=== PATIENT | female | born 1975 | race Caucasian/White ===

== ENCOUNTER 2018-01-13 00:34 | Inpatient (IN) ==
[2018-01-13 01:02] LABS: Bilirubin,Urine Negative (Negative); Blood,Urine Moderate (Negative); Clarity,Urine Cloudy (Clear); Color,Urine Yellow (Yellow); Glucose,Urine (UA) Normal (Normal); Ketones,Urine 40 mg/dL (Negative); Leukocyte Esterase,Urine Large (Negative); Nitrite,Urine Positive (Negative); Protein,Urine 100 mg/dL (Neg-Trace); Specific Gravity,Urine 1.018 (1.010-1.025); Urobilinogen,Urine Normal (Normal)
[2018-01-13 01:07] LABS: Bacteria,Urine Many per hpf (None-Few); Hyaline Casts,Urine Moderate per lpf (None-Few); Squamous Epithelial Cell,Urine Many per lpf (None-Few); WBC,Urine TNTC per hpf (0-3)
--- NOTE | 2018-01-13 01:30 | Emergency Department Note ---
Disposition Clinical Impression: Pyelonephritis, Right flank pain UTI (urinary tract infection) Qualifiers: Urinary tract infection type: acute cystitis Hematuria presence: with hematuria Qualified Code(s): N30.01 - Acute cystitis with hematuria Disposition: Admitted As Inpatient Condition: Fair Referrals: Yin Mejia MD [Primary Care Provider] - Forms: ED Satisfaction Letter Time of Disposition: 04:02 General Adult HPI - General Chief complaint: ED Back Pain/Injury Stated complaint: Bilat Flank Pain Time Seen by Provider: 01/13/18 01:30 Source: patient, family Mode of arrival: ambulatory Limitations: no limitations Nursing Notes Reviewed: Yes Vital Signs Reviewed: Yes - History of Present Illness HPI Narrative: Patient is a 42-year-old female with past medical history of Sjogren's, lupus, chronic UTIs. She presents today due to dysuria, hematuria, bilateral flank pain, right upper quadrant pain. She states that this has been going on for about a week, she has not had any nausea or vomiting but does state that she has had subjective fevers at home. She has also had a few episodes of loose runny stools but denies any blood in stool. No other chest pain, shortness breath, cough. Denies any vaginal bleeding or discharge. She admits to multiple episodes of UTIs and pyelonephritis in the past that have required admission Pain Scale: 10 - Related Data Allergies Allergy/AdvReac Type Severity Reaction Status Date / Time methotrexate Allergy Hives Verified 01/13/18 00:37 Penicillins Allergy Hives Verified 01/13/18 00:37 Sulfa (Sulfonamide Allergy Hives Verified 01/13/18 00:37 Antibiotics) All systems ED: reviewed and negative except as stated. Constitutional: Reports: fever Cardiovascular: Denies: chest pain Respiratory: Denies: dyspnea Gastrointestinal: Reports: abdominal pain. Denies: nausea, vomiting, diarrhea Genitourinary: Reports: dysuria, hematuria Neurological: Denies: headache, weakness, numbness, paresthesias Past Medical History - Past Medical History Attestation: Yes The following information was validated with the patient. 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 history: Reports: uterine fibroids - Social History Smoking Status: Current every day smoker Smokeless Tobacco Status: No Alcohol use: Reports: occasionally Drug use: Reports: marijuana Physical Exam - General Limitations: no limitations General appearance: alert, in no apparent distress - Head Head exam: atraumatic, normocephalic, normal inspection - Eye Eye exam: Present: normal appearance, PERRL, EOMI - ENT ENT exam: normal exam, normal oropharynx, mucous membranes moist - Neck Neck exam: Present: normal inspection, full ROM, trachea midline - Chest Chest inspection: Present: normal inspection, symmetric chest wall rise - Respiratory Respiratory exam: Present: normal lung sounds bilaterally - Cardiovascular Cardiovascular exam: Present: normal rhythm, tachycardia, normal heart sounds - Abdominal Exam Abdominal exam: Present: soft, tenderness (Mild to moderate right upper quadrant tenderness, right CVA tenderness). Absent: distention, guarding, rebound, rigidity, Landa's sign, Rovsing's sign, tenderness at McBurney's Point - Extremities Exam Extremities exam: Present: normal inspection, full ROM. Absent: tenderness, pedal edema - Neurological Exam Neurological exam: Present: alert, oriented X3 - Psychiatric Psychiatric exam: Present: normal affect, normal mood - Skin Skin exam: Present: warm, dry, intact, normal color Course Course Narrative: Patient was tachycardic on presentation. Patient was given fluids. Patient appeared very palpable on exam, was lying on her side, had right CVA tenderness , mild right upper quadrant tenderness but negative Landa's. Bedside ultrasound was negative for cholecystitis. CT abdomen and pelvis shows right perinephric stranding. Urinalysis was positive for UTI. Elevated white blood cell count. Patient does meet sepsis criteria. She had sepsis protocol workup. Patient was given Rocephin 2 g. She will be admitted to the hospital for further care. Patient was given fentanyl and Zofran for pain and nausea control during her stay in the ER. Vital Signs Temperature 97.6 F 01/13/18 00:37 Pulse Rate 110 01/13/18 00:37 Respiratory Rate 18 01/13/18 00:37 Blood Pressure 127/84 01/13/18 00:37 O2 Sat by Pulse Oximetry 98 01/13/18 00:37 Temperature 97.6 F 01/13/18 00:37 Pulse Rate 110 01/13/18 00:37 Respiratory Rate 18 01/13/18 00:37 Blood Pressure 127/84 01/13/18 00:37 O2 Sat by Pulse Oximetry 98 01/13/18 00:37 Oxygen Delivery Oxygen Delivery Room Air Medical Decision Making - MDM Narrative Medical decision making narrative: Patient was tachycardic on presentation. Patient was given fluids. Patient appeared very palpable on exam, was lying on her side, had right CVA tenderness , mild right upper quadrant tenderness but negative Landa's. Bedside ultrasound was negative for cholecystitis. CT abdomen and pelvis shows right perinephric stranding. Urinalysis was positive for UTI. Elevated white blood cell count. Patient does meet sepsis criteria. She had sepsis protocol workup. Patient was given Rocephin 2 g. She will be admitted to the hospital for further care. Patient was given fentanyl and Zofran for pain and nausea control during her stay in the ER. - Medical Records Medical records reviewed: Yes I reviewed the patient's medical records. - Lab Data Lab results reviewed: Yes I reviewed the patient's lab results. Result diagrams: 01/13/18 01:39 01/13/18 01:39 Lab Results 01/13/18 01/13/18 01/13/18 Range/Units 00:48 01:39 01:39 WBC 15.3 H (4.3-11.1) K/mcL RBC 4.02 (3.82-4.97) M/mcL Hgb 13.7 (11.5-15.4) g/dL Hct 40.2 (35.3-44.9) % MCV 100.0 (83.0-100.0) fL MCH 34.1 H (28.0-33.3) pg MCHC 34.1 (31.6-35.5) g/dL RDW 12.2 (11.5-14.5) % Plt Count 220 (140-400) K/mcL MPV 11.4 (9.4-12.4) fL Immature Gran % 0.7 (0-4) % Seg Neutrophils % 83.9 % Lymphocytes % 6.7 % Monocytes % 8.0 % Eosinophils % 0.4 % Basophils % 0.3 % Neutrophils # 12.9 H (1.6-8.9) K/mcL Lymphocytes # 1.0 (0.6-4.6) K/mcL Monocytes # 1.2 (0.0-1.3) K/mcL Eosinophils # 0.1 (0.0-0.6) K/mcL Basophils # 0.1 (0.0-0.2) K/mcL Sodium 128 L (136-145) mEq/L Potassium 4.1 (3.5-5.1) mEq/L Chloride 104 (98-107) mEq/L Carbon Dioxide 17 L (23-29) mEq/L BUN 18 (6-20) mg/dL Creatinine 1.16 (0.60-1.20) mg/dL Est GFR ( Amer) > 60 (> 60) Est GFR (Non-Af Amer) 51 L (> 60) BUN/Creatinine Ratio 16 (6-26) Glucose 103 (70-105) mg/dL Calculated Osmolality 268 L (280-300) Calcium 8.9 (8.6-10.3) mg/dL Total Bilirubin 0.5 (0.3-1.0) mg/dL Direct Bilirubin 0.1 (0.0-0.2) mg/dL Indirect Bilirubin 0.4 (0.0-1.2) mg/dL AST 14 (13-39) Units/L ALT 11 (7-52) Units/L Alkaline Phosphatase 62 (34-104) Units/L Serum Total Protein 8.7 (6.4-8.9) g/dL Albumin 3.7 (3.5-5.7) g/dL Globulin 5.0 H (2.4-3.5) g/dL Albumin/Globulin Ratio 0.7 L (1.1-2.2) Lipase 11 (11-82) Units/L Urine Color Yellow (Yellow) Urine Clarity Cloudy A (Clear) Urine pH 7.0 (5.0-8.0) pH Units Ur Specific [place] 1.018 (1.010-1.025) Urine Protein 100 H (Neg-Trace) mg/dL Urine Glucose (UA) Normal (Normal) mg/dL Urine Ketones 40 H (Negative) mg/dL Urine Blood Moderate H (Negative) Urine Nitrite Positive A (Negative) Urine Bilirubin Negative (Negative) Urine Urobilinogen Normal (Normal) mg/dL Ur Leukocyte Esterase Large H (Negative) Urine Microscopic RBC 5-15 H (0-3) per hpf Urine Microscopic WBC TNTC H (0-3) per hpf Ur Squamous Epith Cells Many H (None-Few) per lpf Urine Bacteria Many H (None-Few) per hpf Hyaline Casts Moderate H (None-Few) per lpf Ur Culture Indicated? NO. A (NO) - Radiology Data Radiology results reviewed: Yes I reviewed the patient's radiology results. Abdomen/Pelvis CT 01/13/18 01:31 IMPRESSION: Nonobstructive right nephrolithiasis with moderate perinephric inflammatory stranding. No definite ureteral stone (a few phleboliths lie adjacent to the ureters bilaterally). No drainable perinephric fluid collection. No left nephrolithiasis or hydronephrosis. Cholelithiasis. D/ / Dru Peck / Dru Peck Interpreting Provider: Dru Garzon - [email or web address] Situation: Demographics, MOA Background: Presenting Complaint, Relevant PMH, Meds, & Allergies Assessment: Vital Signs, Course and respsone to treatment, Exam Concerns, Patient/Family Expectation, Pertinant Lab Results Recommendation: Barrier(s) to disposition, Recommendation based on pending studies, treatments, or consults S.B.A.R. Report Given to: Dr. Hernandez
[2018-01-13] MEDS ORDERED: *HR* FentaNYL (PF) 100 MCG/2 ML VIAL IVP ONE ×2 (01:32→04:22)
[2018-01-13] MEDS ORDERED: Ondansetron 4 MG/2 ML VIAL IVP ONE (01:32)
[2018-01-13] MEDS ORDERED: 0.9 % Sodium Chloride 1,000 ML IVC ONE ×2 (02:01→04:03)
[2018-01-13 02:02] LABS: Basophils # 0.1 K/mcL (0.0-0.2); Basophils % 0.3 %; Eosinophils # 0.1 K/mcL (0.0-0.6); Eosinophils % 0.4 %; Hematocrit 40.2 % (35.3-44.9); Hemoglobin 13.7 g/dL (11.5-15.4); Immature Granulocytes % 0.7 % (0-4); Lymphocytes % 6.7 %; Mean Corpuscular HGB Conc 34.1 g/dL (31.6-35.5); Mean Corpuscular Hemoglobin 34.1 pg (28.0-33.3); Mean Platelet Volume 11.4 fL (9.4-12.4); Monocytes # 1.2 K/mcL (0.0-1.3); Neutrophils # 12.9 K/mcL (1.6-8.9); Platelet Count 220 K/mcL (140-400); Red Blood Count 4.02 M/mcL (3.82-4.97); Red Cell Distribution Width 12.2 % (11.5-14.5); Segmented Neutrophils % 83.9 %
[2018-01-13] MEDS ORDERED: cefTRIAXone 1,000 MG in Water for inj. (sterile) 20 ML 10 ML IVPB ONE (02:02)
[2018-01-13 02:19] LABS: Alanine Aminotransferase 11 Units/L (7-52); Albumin 3.7 g/dL (3.5-5.7); Albumin/Globulin Ratio 0.7 (1.1-2.2); Alkaline Phosphatase 62 Units/L (34-104); Aspartate Amino Transferase 14 Units/L (13-39); BUN/Creatinine Ratio 16 (6-26); Bilirubin,Direct 0.1 mg/dL (0.0-0.2); Bilirubin,Indirect 0.4 mg/dL (0.0-1.2); Bilirubin,Total 0.5 mg/dL (0.3-1.0); Blood Urea Nitrogen 18 mg/dL (6-20); Calcium 8.9 mg/dL (8.6-10.3); Carbon Dioxide 17 mEq/L (23-29); Chloride 104 mEq/L (98-107); Glucose 103 mg/dL (70-105); Lipase 11 Units/L (11-82); Osmolality,Calculated 268 (280-300); Potassium 4.1 mEq/L (3.5-5.1); Sodium 128 mEq/L (136-145); Total Protein 8.7 g/dL (6.4-8.9); eGFR For African Americans > 60 (> 60); eGFR For Non-African Americans 51 (> 60)
[2018-01-13] MEDS ORDERED: cefTRIAXone 1,000 MG in Water for inj. (sterile) 20 ML 10 ML IVP ONE (03:56)
--- NOTE | 2018-01-13 03:59 | Emergency Department Note ---
Disposition Clinical Impression: Pyelonephritis, Right flank pain UTI (urinary tract infection) Qualifiers: Urinary tract infection type: acute cystitis Hematuria presence: with hematuria Qualified Code(s): N30.01 - Acute cystitis with hematuria Disposition: Admitted As Inpatient Condition: Fair General Adult HPI - General Chief complaint: ED Back Pain/Injury Stated complaint: Bilat Flank Pain Time Seen by Provider: 01/13/18 01:30 Source: patient, family Mode of arrival: ambulatory Limitations: no limitations - History of Present Illness Pain Scale: 10 - Related Data Home Medications Medication Instructions Recorded Confirmed Potassium Citrate [Urocit-K] 15 meq PO DAILY 01/13/18 01/13/18 Allergies Allergy/AdvReac Type Severity Reaction Status Date / Time methotrexate Allergy Hives Verified 01/13/18 00:37 Penicillins Allergy Hives Verified 01/13/18 00:37 Sulfa (Sulfonamide Allergy Hives Verified 01/13/18 00:37 Antibiotics) Past Medical History - Past Medical History Medical history: Reports: kidney stones, RA, renal disease Psychiatric history: Reports: no psych history [employer]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: Reports: uterine fibroids - Social History Smoking Status: Current every day smoker Smokeless Tobacco Status: No Alcohol use: Reports: occasionally Drug use: Reports: marijuana Physical Exam - General Limitations: no limitations General appearance: alert, in no apparent distress Course Vital Signs Temperature 97.6 F 01/13/18 00:37 Pulse Rate 110 01/13/18 00:37 Respiratory Rate 18 01/13/18 00:37 Blood Pressure 127/84 01/13/18 00:37 O2 Sat by Pulse Oximetry 98 01/13/18 00:37 Temperature 99.4 F 01/13/18 05:54 Pulse Rate 106 01/13/18 05:54 Respiratory Rate 14 01/13/18 05:54 Blood Pressure 116/70 01/13/18 05:54 O2 Sat by Pulse Oximetry 99 01/13/18 05:54 Oxygen Delivery Oxygen Delivery Room Air Medical Decision Making - Lab Data Result diagrams: 01/13/18 01:39 01/13/18 01:39 Lab Results 01/13/18 01/13/18 01/13/18 Range/Units 00:48 01:39 01:39 WBC 15.3 H (4.3-11.1) K/mcL RBC 4.02 (3.82-4.97) M/mcL Hgb 13.7 (11.5-15.4) g/dL Hct 40.2 (35.3-44.9) % MCV 100.0 (83.0-100.0) fL MCH 34.1 H (28.0-33.3) pg MCHC 34.1 (31.6-35.5) g/dL RDW 12.2 (11.5-14.5) % Plt Count 220 (140-400) K/mcL MPV 11.4 (9.4-12.4) fL Immature Gran % 0.7 (0-4) % Seg Neutrophils % 83.9 % Lymphocytes % 6.7 % Monocytes % 8.0 % Eosinophils % 0.4 % Basophils % 0.3 % Neutrophils # 12.9 H (1.6-8.9) K/mcL Lymphocytes # 1.0 (0.6-4.6) K/mcL Monocytes # 1.2 (0.0-1.3) K/mcL Eosinophils # 0.1 (0.0-0.6) K/mcL Basophils # 0.1 (0.0-0.2) K/mcL Sodium 128 L (136-145) mEq/L Potassium 4.1 (3.5-5.1) mEq/L Chloride 104 (98-107) mEq/L Carbon Dioxide 17 L (23-29) mEq/L BUN 18 (6-20) mg/dL Creatinine 1.16 (0.60-1.20) mg/dL Est GFR ( Amer) > 60 (> 60) Est GFR (Non-Af Amer) 51 L (> 60) BUN/Creatinine Ratio 16 (6-26) Glucose 103 (70-105) mg/dL Calculated Osmolality 268 L (280-300) Calcium 8.9 (8.6-10.3) mg/dL Total Bilirubin 0.5 (0.3-1.0) mg/dL Direct Bilirubin 0.1 (0.0-0.2) mg/dL Indirect Bilirubin 0.4 (0.0-1.2) mg/dL AST 14 (13-39) Units/L ALT 11 (7-52) Units/L Alkaline Phosphatase 62 (34-104) Units/L Serum Total Protein 8.7 (6.4-8.9) g/dL Albumin 3.7 (3.5-5.7) g/dL Globulin 5.0 H (2.4-3.5) g/dL Albumin/Globulin Ratio 0.7 L (1.1-2.2) Lipase 11 (11-82) Units/L Urine Color Yellow (Yellow) Urine Clarity Cloudy A (Clear) Urine pH 7.0 (5.0-8.0) pH Units Ur Specific [place] 1.018 (1.010-1.025) Urine Protein 100 H (Neg-Trace) mg/dL Urine Glucose (UA) Normal (Normal) mg/dL Urine Ketones 40 H (Negative) mg/dL Urine Blood Moderate H (Negative) Urine Nitrite Positive A (Negative) Urine Bilirubin Negative (Negative) Urine Urobilinogen Normal (Normal) mg/dL Ur Leukocyte Esterase Large H (Negative) Urine Microscopic RBC 5-15 H (0-3) per hpf Urine Microscopic WBC TNTC H (0-3) per hpf Ur Squamous Epith Cells Many H (None-Few) per lpf Urine Bacteria Many H (None-Few) per hpf Hyaline Casts Moderate H (None-Few) per lpf Ur Culture Indicated? NO. A (NO) Critical Care Time Critical Care Time: Yes Total Critical Care Time: 35 Attestation: Critical care performed: Time is exclusive of separately billable procedures. Time includes: direct patient care, patient reassessment, coordination of patient care, interpretation of data (laboratory data, radiology data, and respiratory data), review of patient's medical records, medical consultation and documentation of patient care. Procedures included in critical care time: Procedures excluded from critical care time: Attestation Statement - Attestation Attestation: I examined this patient and my medical decision-making was reviewed with the Resident Physician. I agree with the documented findings, disposition and treatment plan as described except to the extent set forth below. Patient presents to the emergency department with a chief complaint of back pain. States UTI symptoms. Patient states she has had multiple episodes of the past does have required admission. On examination she is laying on her side of the bed crying. Right sided CVA tenderness with percussion. Abdomen soft. Plan. Patient with significant UTI. Tachycardic with a leukocytosis. Patient admitted meeting sepsis criteria. Rocephin given.
[2018-01-13] MEDS ORDERED: Naloxone 0.4 MG/ML INJ IVP PRN (04:02)
[2018-01-13] MEDS ORDERED: Acetaminophen 325 MG TABLET PO PRN (04:05)
--- NOTE | 2018-01-13 04:27 | Internal Med History&Physical ---
Date of Encounter: 01/13/18 Time of Encounter: 04:25 Internal Medicine - H&P: HPI Chief complaint: Flank pain Admitted From: Home History of present illness: Ms. Auguste is a 42 year old female with PMH of lupus, CKD III, recurrent UTIs ( per patient), who presented to the ER with complains of Right flank pain. She reports she woke up one day ago with severe, dull non-radiating right sided flank pain. No known aggravating or relieving factors. She denies fever but endorses chills, she denies chest pain, SOB, leg swelling, she denies diarrhea, constipation or abdominal pain She endorsed she had dysuria 3 days prior to presentation. She denies other genitourinary symptoms She was tachycardic, in the ER with UA showing hematuria, positive LE, Nitritrs bacteria. Abd CT showed R perinephric stranding with non-obstructive stones Past Med Surg Social Fam HX - Past Medical History Medical history: kidney stones, renal disease, other (lupus) Psychiatric history: no psych history - Social History Smoking Status: Current every day smoker Smokeless Tobacco Status: No Alcohol use: occasionally Drug use: marijuana Internal Medicine - H&P: Meds 3 Allergy/AdvReac Type Severity Reaction Status Date / Time methotrexate Allergy Hives Verified 01/13/18 00:37 Penicillins Allergy Hives Verified 01/13/18 00:37 Sulfa (Sulfonamide Allergy Hives Verified 01/13/18 00:37 Antibiotics) All Systems PM: A 10-system review of systems was performed and is negative for pertinent findings except as documented above in the HPI. - Constitutional Constitutional: chills - EENT Eyes: no change in vision, no discharge, no pain, no photophobia Ears: no ear discharge, no ear pain, no tinnitus Nose, mouth and throat: no dysphagia, no nasal discharge, no neck pain, no sore throat - Cardiovascular Cardiovascular ROS IM: no chest pain, no diaphoresis, no dyspnea, no lightheadedness, no palpitations, no syncope - Respiratory Respiratory: no cough, no dyspnea, no wheezing, no excessive phlegm production - Gastrointestinal Gastrointestinal: no abdominal pain, no diarrhea, no hematemesis, no hematochezia, no melena, no nausea, no vomiting - Genitourinary Genitourinary: as per HPI, dysuria, flank pain - Musculoskeletal Musculoskeletal ROS IM: no numbness, no tingling - Integumentary Integumentary IM: no rash, no unusual bruising - Neurological Neurological ROS: no confusion, no convulsions, no focal weakness, no numbness, no tingling, no tremor(s) - Hematologic/Lymphatic Hematologic/Lymphatic: no easy bruising - Constitutional Vitals: Temp Pulse Resp BP Pulse Ox 97.6 F 110 18 127/84 98 01/13/18 00:37 01/13/18 00:37 01/13/18 00:37 01/13/18 00:37 01/13/18 00:37 General appearance: Present: mild distress, A&O X 3, pleasant - Head Head exam: Present: atraumatic, normocephalic - Eye Eye exam: Present: PERRL, conjuntiva pink, sclera anicteric Pupils: Present: PERRL - Neck Neck exam general surgery: Present: supple, trachea midline. Absent: lymphadenopathy - Respiratory Respiratory exam: Present: CTAB. Absent: accessory muscle use, rales, rhonchi, wheezes - Cardiovascular Cardiovascular exam: Present: RRR, +S1, +S2. Absent: diastolic murmur, gallop, rubs, systolic murmur - GI/Abdominal GI/Abdominal exam: Present: normal bowel sounds, soft, no peritoneal signs. Absent: distended, tenderness - Extremities Exam Extremities exam: Present: warm, radial pulses palpable and symmetrical. Absent : calf tenderness, cyanotic, pedal edema - Back Exam Back exam: Present: CVA tenderness (R) - Neurological Exam Neurological exam: Present: alert, CN II-XII intact, oriented X3, no focal deficits. Absent: pronater drift, facial droop, speech deficit - Skin Skin exam: Present: dry, intact Internal Med - H&P Results - Labs CBC & Chem 7: 01/13/18 01:39 01/13/18 01:39 - Assessment and plan (1) Sepsis Current Visit: Yes Status: Acute Assessment and plan: Presented with tachycardia, leukocytosis, dirty UA and flank pain Abd CT revealed R side non-obstructive stones with inflammatory stranding Blood and urine cultures ordered Afebrile Continue IV ceftriaxone 2g daily Lactate WNL BP WNL Hemodynamically stable Qualifiers: Sepsis type: sepsis due to unspecified organism Qualified Code(s): A41.9 - Sepsis, unspecified organism (2) Pyelonephritis Current Visit: Yes Status: Acute Assessment and plan: follow urine cultures, follow blood cultures, continue ceftriaxone 2g daily (3) Lupus Current Visit: Yes Status: Chronic Assessment and plan: per patient, she is in remission and is not on any immunosuppresants Qualifiers: Lupus erythematosus form: unspecified Qualified Code(s): L93.0 - Discoid lupus erythematosus (4) CKD (chronic kidney disease) Current Visit: Yes Status: Chronic Assessment and plan: renal function is at baseline Qualifiers: Chronic kidney disease stage: stage 3 (moderate) Qualified Code(s): N18.3 - Chronic kidney disease, stage 3 (moderate) - Time Spent With Patient Total time spent is greater than 50% in coordination of care (as documented) at patient's floor/unit and/or counseling patient:
[2018-01-13] MEDS: *HR* OxyCODONE/APAP 5/325 TABLET PO PRN ×4 (05:54→20:10)
[2018-01-13] MEDS: *HR* Enoxaparin 40 MG/0.4 ML SYRINGE SQ SCH (05:54)
--- NOTE | 2018-01-13 14:24 | Internal Med Progress Note ---
Date of Encounter: 01/13/18 Time of Encounter: 12:45 - Assessment and plan (1) Sepsis Current Visit: Yes Status: Acute Assessment and plan: Does met sepsis criteria with tachycardia, leukocytosis and source of inf as UTI Blood cx and Urine cx - done Continue IV ceftriaxone 2g daily Hemodynamically stable d/c Tele Qualifiers: Sepsis type: sepsis due to unspecified organism Qualified Code(s): A41.9 - Sepsis, unspecified organism (2) Pyelonephritis Current Visit: Yes Status: Acute Assessment and plan: Abd CT revealed R side non-obstructive stones with inflammatory stranding concerning for Rt pyelonephritis follow urine cultures, follow blood cultures continue ceftriaxone 2g daily (3) UTI (urinary tract infection) Current Visit: Yes Status: Acute Qualifiers: Urinary tract infection type: acute cystitis Hematuria presence: without hematuria Qualified Code(s): N30.00 - Acute cystitis without hematuria (4) Lupus Current Visit: Yes Status: Chronic Assessment and plan: per patient, she is in remission and is not on any immunosuppresants Qualifiers: Lupus erythematosus form: unspecified Qualified Code(s): L93.0 - Discoid lupus erythematosus (5) CKD (chronic kidney disease) Current Visit: Yes Status: Chronic Assessment and plan: renal function is at baseline Qualifiers: Chronic kidney disease stage: stage 3 (moderate) Qualified Code(s): N18.3 - Chronic kidney disease, stage 3 (moderate) (6) Tobacco dependence Current Visit: Yes Status: Acute Assessment and plan: counseled to quit smoking on nicotine patch - Time Spent With Patient Total time spent is greater than 50% in coordination of care (as documented) at patient's floor/unit and/or counseling patient: - Subjective Interval history: Ms. Auguste is a 42 year old female with PMH of lupus, CKD III, recurrent UTI's , who presented to the ER with complains of Right flank pain. Pt states she is feeling better now. However still has Rt flank pain. - Constitutional Vitals: Temp Pulse Resp BP Pulse Ox 98.7 F 72 14 101/62 95 01/13/18 10:10 01/13/18 10:10 01/13/18 10:10 01/13/18 10:10 01/13/18 10:10 General appearance: Present: A&O X 3, pleasant - Head Head exam: Present: atraumatic, normal inspection - Neck Neck exam general surgery: Present: supple - Respiratory Respiratory exam: Present: decreased breath sounds. Absent: rales, respiratory distress, rhonchi, wheezes - Cardiovascular Cardiovascular exam: Present: RRR, +S1, +S2. Absent: tachycardia - GI/Abdominal GI/Abdominal exam: Present: normal bowel sounds, soft. Absent: rebound, rigid, tenderness - Extremities Exam Extremities exam: Absent: calf tenderness, pedal edema, tenderness - Back Exam Back exam: Present: CVA tenderness (R). Absent: CVA tenderness (L) - Neurological Exam Neurological exam: Present: alert, oriented X3 - Psychiatric Psychiatric exam: Present: normal affect, normal mood Internal Medicine: Result - Labs CBC & Chem 7: 01/13/18 01:39 01/13/18 01:39 Consult Discharge Plan - Plan Referrals: Yin Mejia MD [Primary Care Provider] -
[2018-01-13] MEDS: Nicotine 21 MG PATCH.TD24 TD SCH (15:14)
[2018-01-13] MEDS: 0.9 % Sodium Chloride 1,000 ML IVC SCH (15:14)
[2018-01-13] MEDS: Ondansetron 4 MG/2 ML VIAL IVP PRN (20:13)
[2018-01-14] MEDS: 0.9 % Sodium Chloride 1,000 ML IVC SCH (04:24)
[2018-01-14] MEDS: cefTRIAXone 2,000 MG in Water for inj. (sterile) 20 ML 20 ML IVP SCH (04:25)
[2018-01-14] MEDS: *HR* Enoxaparin 40 MG/0.4 ML SYRINGE SQ SCH (04:34)
[2018-01-14 04:47] LABS: Basophils % 0.5 %; Eosinophils # 0.3 K/mcL (0.0-0.6); Eosinophils % 3.4 %; Hematocrit 35.9 % (35.3-44.9); Immature Granulocytes % 0.5 % (0-4); Lymphocytes # 1.1 K/mcL (0.6-4.6); Lymphocytes % 13.5 %; Mean Corpuscular HGB Conc 33.4 g/dL (31.6-35.5); Mean Corpuscular Hemoglobin 34.3 pg (28.0-33.3); Mean Corpuscular Volume 102.6 fL (83.0-100.0); Monocytes # 0.9 K/mcL (0.0-1.3); Monocytes % 10.6 %; Neutrophils # 5.7 K/mcL (1.6-8.9); Platelet Count 202 K/mcL (140-400); Red Cell Distribution Width 12.5 % (11.5-14.5); Segmented Neutrophils % 71.5 %
[2018-01-14 05:14] LABS: BUN/Creatinine Ratio 11 (6-26); Blood Urea Nitrogen 10 mg/dL (6-20); Carbon Dioxide 17 mEq/L (23-29); Chloride 114 mEq/L (98-107); Glucose 76 mg/dL (70-105); Osmolality,Calculated 278 (280-300); Potassium 4.2 mEq/L (3.5-5.1); Sodium 135 mEq/L (136-145); eGFR For African Americans > 60 (> 60); eGFR For Non-African Americans > 60 (> 60)
[2018-01-14] MEDS: Nicotine 21 MG PATCH.TD24 TD SCH (08:34)
[2018-01-14] MEDS: Ondansetron 4 MG/2 ML VIAL IVP PRN (08:35)
[2018-01-14] MEDS ORDERED: Ondansetron 4 MG/2 ML VIAL IVP PRN (11:12)
[2018-01-14] MEDS ORDERED: *HR* Promethazine 25 MG/ML VIAL IVP PRN (11:12)
--- NOTE | 2018-01-14 11:15 | Internal Med Progress Note ---
Date of Encounter: 01/14/18 Time of Encounter: 11:13 - Assessment and plan (1) Sepsis Current Visit: Yes Status: Acute Assessment and plan: Does met sepsis criteria with tachycardia, leukocytosis and source of inf as UTI Blood cx - no growth so far urine cx - P Continue IV ceftriaxone 2g daily Qualifiers: Sepsis type: sepsis due to unspecified organism Qualified Code(s): A41.9 - Sepsis, unspecified organism (2) Pyelonephritis Current Visit: Yes Status: Acute Assessment and plan: Abd CT revealed R side non-obstructive stones with inflammatory stranding concerning for Rt pyelonephritis blood cultures - NGTD continue ceftriaxone 2g daily (3) Intractable nausea and vomiting Current Visit: Yes Status: Acute Assessment and plan: Due to Pyelonephritis cont symptomatic and supportive care switched to full liquid diet Qualifiers: Vomiting type: unspecified Qualified Code(s): R11.2 - Nausea with vomiting , unspecified (4) UTI (urinary tract infection) Current Visit: Yes Status: Acute Qualifiers: Urinary tract infection type: acute cystitis Hematuria presence: without hematuria Qualified Code(s): N30.00 - Acute cystitis without hematuria (5) Lupus Current Visit: Yes Status: Chronic Assessment and plan: per patient, she is in remission and is not on any immunosuppresants Qualifiers: Lupus erythematosus form: unspecified Qualified Code(s): L93.0 - Discoid lupus erythematosus (6) CKD (chronic kidney disease) Current Visit: Yes Status: Chronic Assessment and plan: renal function is at baseline Qualifiers: Chronic kidney disease stage: stage 3 (moderate) Qualified Code(s): N18.3 - Chronic kidney disease, stage 3 (moderate) (7) Tobacco dependence Current Visit: Yes Status: Acute Assessment and plan: counseled to quit smoking on nicotine patch - Time Spent With Patient Total time spent is greater than 50% in coordination of care (as documented) at patient's floor/unit and/or counseling patient: - Subjective Interval history: Ms. Auguste is a 42 year old female with PMH of lupus, CKD III, recurrent UTI's , who presented to the ER with complains of Right flank pain. Her Rt flank pain is better today. However she does have severe nausea and vomiting today. Unable to keep any food down - Constitutional Vitals: Temp Pulse Resp BP Pulse Ox 98.3 F 75 14 105/63 98 01/14/18 07:28 01/14/18 07:28 01/14/18 07:28 01/14/18 07:28 01/14/18 07:28 General appearance: Present: A&O X 3, pleasant - Head Head exam: Present: atraumatic, normal inspection - Neck Neck exam general surgery: Present: supple - Respiratory Respiratory exam: Present: decreased breath sounds. Absent: rales, respiratory distress, rhonchi, wheezes - Cardiovascular Cardiovascular exam: Present: RRR, +S1, +S2. Absent: tachycardia - GI/Abdominal GI/Abdominal exam: Present: normal bowel sounds, soft. Absent: rebound, rigid, tenderness - Extremities Exam Extremities exam: Absent: calf tenderness, pedal edema, tenderness - Back Exam Back exam: Absent: CVA tenderness (L), CVA tenderness (R) - Neurological Exam Neurological exam: Present: alert, oriented X3 - Psychiatric Psychiatric exam: Present: normal affect, normal mood Internal Medicine: Result - Labs CBC & Chem 7: 01/14/18 04:17 01/14/18 04:17 Labs: Short CBC 01/14/18 Range/Units 04:17 WBC 8.0 (4.3-11.1) K/mcL Hgb 12.0 D (11.5-15.4) g/dL Hct 35.9 (35.3-44.9) % Plt Count 202 (140-400) K/mcL Neutrophils # 5.7 (1.6-8.9) K/mcL BMP 01/14/18 04:17 Sodium 135 L Potassium 4.2 Chloride 114 H Carbon Dioxide 17 L BUN 10 Creatinine 0.89 Glucose 76 Calcium 8.0 L Consult Discharge Plan - Plan Referrals: Yin Mejia MD [Primary Care Provider] -
[2018-01-15] MEDS: cefTRIAXone 2,000 MG in Water for inj. (sterile) 20 ML 20 ML IVP SCH (05:39)
[2018-01-15] MEDS: *HR* Enoxaparin 40 MG/0.4 ML SYRINGE SQ SCH (05:40)
[2018-01-15] MEDS: 0.9 % Sodium Chloride 1,000 ML IVC SCH (07:37)
[2018-01-15] MEDS: Nicotine 21 MG PATCH.TD24 TD SCH (07:59)
[2018-01-15 10:55] VITALS: BP 115/81
--- NOTE | 2018-01-15 11:43 | Discharge Summary ---
<RosioArie - Last Filed: 01/15/18 11:42> Date of Encounter: 01/15/18 Time of Encounter: 10:00 - Discharge Diagnosis (1) Pyelonephritis Status: Acute (2) UTI (urinary tract infection) Status: Acute Qualifiers: Urinary tract infection type: acute cystitis Hematuria presence: without hematuria Qualified Code(s): N30.00 - Acute cystitis without hematuria (3) Sepsis Status: Acute Qualifiers: Sepsis type: sepsis due to unspecified organism Qualified Code(s): A41.9 - Sepsis, unspecified organism (4) Lupus Status: Chronic Qualifiers: Lupus erythematosus form: unspecified Qualified Code(s): L93.0 - Discoid lupus erythematosus (5) CKD (chronic kidney disease) Status: Chronic Qualifiers: Chronic kidney disease stage: stage 3 (moderate) Qualified Code(s): N18.3 - Chronic kidney disease, stage 3 (moderate) (6) Tobacco dependence Status: Acute (7) Intractable nausea and vomiting Status: Acute Qualifiers: Vomiting type: unspecified Qualified Code(s): R11.2 - Nausea with vomiting , unspecified Hospital course: Ms. Auguste is a 42 year old female - Time Spent with Patient Total time spent providing and/or coordinating discharge services: - Discharge Medications Prescriptions: cephALEXin [Keflex] 500 mg PO BID #8 capsule Home Medications: Potassium Citrate [Urocit-K] 15 meq PO DAILY 01/13/18 [History] cephALEXin [Keflex] 500 mg PO BID #8 capsule 01/15/18 [Rx] Allergies/Adverse Reactions: 3 Allergy/AdvReac Type Severity Reaction Status Date / Time methotrexate Allergy Hives Verified 01/13/18 00:37 Penicillins Allergy Hives Verified 01/13/18 00:37 Sulfa (Sulfonamide Allergy Hives Verified 01/13/18 00:37 Antibiotics) Date of admission: 01/13/18 04:11 Primary care physician: Yin Mejia MD - Constitutional Vitals: Temp Pulse Resp BP Pulse Ox 97.7 F 82 16 115/81 99 01/15/18 10:54 01/15/18 10:54 01/15/18 10:54 01/15/18 10:54 01/15/18 10:54 General appearance: Present: A&O X 3, pleasant - Patient Status Disposition: Home, Self-Care Condition: Good Functional capacity at discharge: independent ambulation Overall status at discharge: patient is back to baseline - Discharge Instructions Instructions: Cholecystitis (DC), Low Fat Diet (DC), Acute Pyelonephritis (DC) Follow Up With: Yin Mejia MD [Primary Care Provider] - (Office is closed, patient instructed to call and schedule f/u for 5-7 days. Thank you.) - Diet and Activity Activity: increase activity as tolerated, resume usual activities as tolerated Diet: advance to your usual diet <MareYvrose - Last Filed: 01/15/18 18:21> Date of Encounter: 01/15/18 - Discharge Diagnosis (1) Sepsis Priority: Primary Status: Acute Qualifiers: Sepsis type: sepsis due to unspecified organism Qualified Code(s): A41.9 - Sepsis, unspecified organism (2) Pyelonephritis Priority: Primary Status: Acute (3) Intractable nausea and vomiting Priority: Primary Status: Acute Qualifiers: Vomiting type: unspecified Qualified Code(s): R11.2 - Nausea with vomiting , unspecified (4) UTI (urinary tract infection) Priority: Primary Status: Acute Qualifiers: Urinary tract infection type: acute cystitis Hematuria presence: without hematuria Qualified Code(s): N30.00 - Acute cystitis without hematuria (5) Lupus Priority: Secondary Status: Chronic Qualifiers: Lupus erythematosus form: unspecified Qualified Code(s): L93.0 - Discoid lupus erythematosus (6) CKD (chronic kidney disease) Priority: Secondary Status: Chronic Qualifiers: Chronic kidney disease stage: stage 3 (moderate) Qualified Code(s): N18.3 - Chronic kidney disease, stage 3 (moderate) (7) Tobacco dependence Priority: Secondary Status: Acute Hospital course: Ms. Auguste is a 42 year old female - Time Spent with Patient Total time spent providing and/or coordinating discharge services: Date of admission: 01/13/18 04:11 Primary care physician: Yin Mejia MD - Constitutional Vitals: Temp Pulse Resp BP Pulse Ox 97.7 F 82 16 115/81 99 01/15/18 10:54 01/15/18 10:54 01/15/18 10:54 01/15/18 10:54 04/23/18 10:54 - Attending Attestation I examined this patient and my medical decision-making was reviewed with the Resident Physician Dr. Avelar. I agree with the documented findings, disposition and treatment plan as described except to the extent set forth below. Ms. Auguste is a 42 year old female with PMH of lupus, CKD III, recurrent UTI's , who presented to the ER with complains of Right flank pain. Her Rt flank pain is better today. Pt would like to go home Gen: A, A, O x 3 Chest: CTAB Abd: Soft, NT a/p 1. Acute UTI 2. acute pyelonephritis Switched abx to PO Keflex medically stable to d/c home today
== END 2018-01-15 12:01 | disposition home or self-care (01) | DRG 872 ==
LOC: EMEROO 00:34 → 3ANU 00:34
PROVIDERS: ADMIT Internal Medicine; ATTEND Internal Medicine